=== PATIENT | female | born 1960 | race Caucasian/White ===

== ENCOUNTER 2018-05-26 19:05 | Emergency (ER) | payer OTHER ==
--- NOTE | 2018-05-26 20:20 | RAD ---
EXAM DESCRIPTION: Abdomen Series CLINICAL HISTORY: 57 years Female, luq acute pain, vomiting hx hiatal hernia Comparison: None FINDINGS: One AP view of the chest, one upright and one supine view of the abdomen. Cardiomediastinal silhouette is within normal limits. No focal lung consolidation. No pleural effusion. No pneumothorax. Nonobstructive bowel gas pattern. Moderate amount of stool in the region of the ascending colon. No free intraperitoneal air. No unexpected intra-abdominal radiopaque density. No acute osseous finding. IMPRESSION: No acute chest finding. Nonobstructive bowel gas pattern. Electronically signed by: Sue Trimble MD 05/26/2018 8:19 PM [employer]
[2018-05-26 20:24] VITALS: O2SAT 99
[2018-05-26] MEDS ORDERED: ALUM & MAG HYDROX-SIMETHICONE 30 ML UD ONE (20:26)
[2018-05-26] MEDS ORDERED: LIDOCAINE HCL 2% (MOUTH-THROAT) 15 ML UD ONE (20:26)
[2018-05-26] MEDS: ALUM & MAG HYDROX-SIMETHICONE 30 ML, LIDOCAINE VISCOUS 2% 15 ML PO ONE ×2 (20:27)
[2018-05-26] MEDS ORDERED: FAMOTIDINE 20 MG TAB ONE (21:08)
[2018-05-26] MEDS: SUCRALFATE 1 GM/10 ML 1 GM UD PO ONE (21:09)
[2018-05-26] MEDS: FAMOTIDINE 20 MG TAB PO ONE (21:13)
--- NOTE | 2018-05-26 21:54 | ED.PDOC ---
History of Present Illness - General Chief Complaint: Abdominal Pain Stated Complaint: Abdominal Pain Time Seen by Provider: 05/26/18 19:25 Source: patient Exam Limitations: no limitations - History of Present Illness Initial Comments: the patient is a 57-year-old female presenting to the emergency room secondary to epigastric and left upper quadrant discomfort present for the last 3 or 4 hours and worse with eating food. No fever. She did throw up once. She has had a history of a hiatal hernia. No fever. No diffuse abdominal pain. She does take Prilosec daily. Timing/Duration: 4-6 hours Severity: moderate Improving Factors: nothing Worsening Factors: eating Associated Symptoms: denies symptoms Allergies/Adverse Reactions: Allergies NO KNOWN ALLERGY Allergy (Verified 05/26/18 19:14) Home Medications: Ambulatory Orders Sucralfate Tab [Carafate Tab] 1 gm PO QID #120 tab 05/26/18 Review of Systems - Review of Systems Constitutional: States: no symptoms reported EENTM: States: no symptoms reported Respiratory: States: no symptoms reported Cardiology: States: no symptoms reported Gastrointestinal/Abdominal: States: see HPI Genitourinary: States: no symptoms reported Musculoskeletal: States: no symptoms reported Skin: States: no symptoms reported Neurological: States: no symptoms reported Endocrine: States: no symptoms reported All other Systems: No Change from Baseline Past Medical History (General) - Patient Medical History Hx Seizures: No Hx Stroke: No Hx Dementia: No Hx Asthma: No Hx of COPD: No Hx Cardiac Disorders: No Hx Congestive Heart Failure: No Hx Pacemaker: No Hx Hypertension: No Hx Thyroid Disease: No Hx Diabetes: No Hx Gastroesophageal Reflux: No Hx Renal Disease: No Hx Cancer: No Hx of HIV: No Hx Hepatitis C: No Hx MRSA: No Surgical History: other - Vaccination History Hx Tetanus, Diphtheria Vaccination: Yes Hx Influenza Vaccination: No Hx Pneumococcal Vaccination: No Immunizations Up to Date: No - Social History Hx Tobacco Use: No Hx Alcohol Use: Yes - Social drinker Hx Substance Use: No Hx Substance Use Treatment: No Hx Depression: No Feels Threatened In Home Enviroment: No Feels Threatened In a Relationship: No Hx Physical Abuse: No Hx Emotional Abuse: No Hx Suspected Abuse: No - Activities of Daily Living Hospice Agency (if applicable):: None - Female History Patient is a Female of Child Bearing Age (10 -59 yrs old): Yes Patient : No - Triage Comment ED Triage Comment: Pt states that she has upper abdominal pain with nausea that began about three hours ago and has gotten worse. Pt states that pain is worse with movement. Pt has not taken anything for pain. Family Medical History - Family History Mother Family History: Unknown Physical Exam - Physical Exam General Appearance: Alert, Comfortable, No apparent distress Eye Exam: bilateral normal Ears, Nose, Throat: hearing grossly normal, normal ENT inspection, normal pharynx Neck: non-tender, full range of motion, supple Respiratory: no respiratory distress, no accessory muscle use Cardiovascular/Chest: normal peripheral pulses, no edema, other - regular rate Peripheral Pulses: radial,right: 2+, radial,left: 2+ Gastrointestinal/Abdominal: soft, other - epigastric and left upper quadrant discomfort palpation. No definite palpable mass. 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 The patient does appear to have significant gastritis and GI cocktail did help significantly. The patient is to continue her Prilosec but increase it to twice daily. 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 She is going to be written for Carafate 4 times daily for the next month. If the problem recurs then she may need to discuss getting tested for Helicobacter pylori with her primary care doctor. She does have some mild constipation so she should milk pickup driver some milk of magnesia and take a dose daily for 3 days only. Tonight she needs to milk pickup driver some Maalox or Mylanta to take in case her symptoms recur. No other significant pathology has been found. ER warnings were given. Keep routine follow-up with primary care doctor otherwise. - Results/Orders Results/Orders: Laboratory Results - last 24 hr 05/26/18 05/26/18 05/26/18 19:51 19:51 19:51 WBC RBC Hgb Hct MCV MCH MCHC RDW Plt Count MPV Absolute Neuts (auto) Absolute Lymphs (auto) Absolute Monos (auto) Absolute Eos (auto) Absolute Basos (auto) Neutrophils % Lymphocytes % Monocytes % Eosinophils % Basophils % D-Dimer, Quantitative 0.19 Sodium 140 Potassium 3.6 Chloride 104 Carbon Dioxide 27 Anion Gap 12.6 BUN 14 Creatinine 0.73 BUN/Creatinine Ratio 19.2 Random Glucose 112 H Serum Osmolality 280.6 Lactic Acid 1.5 Calcium 9.1 Total Bilirubin 0.4 AST 22 ALT 14 Alkaline Phosphatase 56 Creatine Kinase 81 CK-MB (CK-2) 1.2 CK-MB (CK-2) % Not Reportable Troponin I 0.00 L Serum Total Protein 6.9 Albumin 4.2 Globulin 2.7 Albumin/Globulin Ratio 1.6 Amylase 84 Lipase 34 Urine Color Urine Appearance Urine pH Ur Specific [place] Urine Protein Urine Glucose (UA) Urine Ketones Urine Blood Urine Nitrite Urine Bilirubin Urine Urobilinogen Ur Leukocyte Esterase Urine RBC Urine WBC Ur Epithelial Cells Urine Bacteria 05/26/18 05/26/18 19:51 20:33 WBC 5.8 RBC 4.09 L Hgb 12.4 Hct 37.5 MCV 91.8 MCH 30.3 MCHC 32.9 L RDW 14.1 Plt Count 222 MPV 7.6 Absolute Neuts (auto) 3.70 Absolute Lymphs (auto) 1.40 Absolute Monos (auto) 0.50 Absolute Eos (auto) 0.10 Absolute Basos (auto) 0.10 Neutrophils % 63.7 Lymphocytes % 24.6 Monocytes % 9.2 H Eosinophils % 1.1 Basophils % 1.4 D-Dimer, Quantitative Sodium Potassium Chloride Carbon Dioxide Anion Gap BUN Creatinine BUN/Creatinine Ratio Random Glucose Serum Osmolality Lactic Acid Calcium Total Bilirubin AST ALT Alkaline Phosphatase Creatine Kinase CK-MB (CK-2) CK-MB (CK-2) % Troponin I Serum Total Protein Albumin Globulin Albumin/Globulin Ratio Amylase Lipase Urine Color Yellow Urine Appearance Clear Urine pH 5.5 Ur Specific [place] 1.025 Urine Protein Negative Urine Glucose (UA) Negative Urine Ketones Negative Urine Blood Small H Urine Nitrite Negative Urine Bilirubin Negative Urine Urobilinogen 0.2 Ur Leukocyte Esterase Trace H Urine RBC 5-10 H Urine WBC 3-5 H Ur Epithelial Cells 5-10 Urine Bacteria 1+ acute abdominal series is benign. She does have some constipation. - EKG/XRAY/CT CT Ordered: No CT Interpretation Call Back: No Departure - Departure Clinical Impression: Gastritis Qualifiers: Gastritis type: unspecified gastritis Chronicity: acute Gastritis bleeding: without bleeding Qualified Code(s): K29.00 - Acute gastritis without bleeding Constipation Qualifiers: Constipation type: unspecified constipation type Qualified Code(s): K59.00 - Constipation, unspecified Disposition: Discharge to Home or Self Care Condition: Fair Departure Forms: ED Discharge - Pt. Copy, Patient Portal Self Enrollment Diet: bland diet Activity: increase activity as tolerated Prescriptions: Sucralfate Tab [Carafate Tab] 1 gm PO QID #120 tab Home Medications: Ambulatory Orders Sucralfate Tab [Carafate Tab] 1 gm PO QID #120 tab 05/26/18 Additional Instructions: the patient is a 57-year-old female presenting to the emergency room with epigastric and left upper quadrant pain that started today. The patient does appear to have significant gastritis and GI cocktail did help significantly. The patient is to continue her Prilosec but increase it to twice daily. 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 She is going to be written for Carafate 4 times daily for the next month. If the problem recurs then she may need to discuss getting tested for Helicobacter pylori with her primary care doctor. She does have some mild constipation so she should milk pickup driver some milk of magnesia and take a dose daily for 3 days only. Tonight she needs to milk pickup driver some Maalox or Mylanta to take in case her symptoms recur. No other significant pathology has been found. ER warnings were given. Keep routine follow-up with primary care doctor otherwise.
[2018-05-26 22:11] VITALS: BP 114/74; TEMP 97.9
[2018-05-27] MEDS ORDERED: FAMOTIDINE 20 MG TAB PO ONE (21:05)
== END 2018-05-26 22:05 | disposition home or self-care (01) ==
LOC: ER 19:05
DX: K29.00 Acute gastritis without bleeding (principal); K59.00 Constipation, unspecified

== ENCOUNTER → 2018-06-16 | Outpatient (CLI) | payer BC, OTHER ==
--- NOTE | 2018-06-16 11:47 | CT ---
EXAM DESCRIPTION: CT ABDOMEN AND PELVIS WITH CONTRAST CLINICAL HISTORY: LUQ PAIN COMPARISON: None Available. TECHNIQUE: CT of the abdomen and pelvis are performed during IV bolus administration of routine adult dose of nonionic iodinated contrast. No oral contrast. FINDINGS: In the lower chest, the lung bases are clear. Heart size is normal. CT abdomen Tiny cyst at the lower pole the left kidney. 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 Otherwise the liver, spleen, pancreas, gallbladder, adrenal glands, stomach and kidneys are unremarkable in appearance. No inflammation around the pancreas. No renal stones or hydronephrosis. No bowel dilatation to suggest obstruction. No free air or free fluid. CT pelvis Tubular structure in the right false pelvis is thought to be small appendix. No surrounding inflammation. Pelvic vessels are prominent. No inflammation around the cecum or terminal ileum or sigmoid colon. Bladder and distal ureters are negative for stones. Normal enhancement of pelvic vessels. No inguinal or lower pelvic adenopathy. Small uterus is anteroflexed. No ovarian enlargement. Bone window images are negative for fracture or lytic lesion. Delayed images show normal contrast accumulation within the kidneys. Early contrast accumulation in the bladder base. Coronal and sagittal reformatted images confirm the findings. IMPRESSION: No acute upper abdominal process. No acute process in the pelvis. This exam was performed according to our departmental dose-optimization program, which includes automated exposure control, adjustment of the mA and/or kV according to patient size and/or use of iterative reconstruction technique. Total DLP equals 1014.31 mGycm. Electronically signed by: Ciaran Medina MD 06/16/2018 11:46 AM S[facility]
== END ==
LOC: CT 08:46
PROVIDERS: ATTEND Internal Medicine Gastroenterology
DX: R10.12 Left upper quadrant pain (principal)

== ENCOUNTER 2020-08-12 13:12 | Emergency (ER) | payer BC ==
[2020-08-12] MEDS ORDERED: FLUORESCEIN SODIUM OPHTH STRIP ONE (13:20)
[2020-08-12] MEDS ORDERED: TETRACAINE HCL 0.5% OPHTH SOL 1 DROP ONE (13:52)
[2020-08-12] MEDS ORDERED: ERYTHROMYCIN OPHTH OINT 1 APPLIC RIGHT_EYE ONE (13:58)
--- NOTE | 2020-08-12 14:01 | ED.PDOC ---
History of Present Illness - General Chief Complaint: Eye Problems Stated Complaint: eye irritation Time Seen by Provider: 08/12/20 13:58 Source: patient Exam Limitations: no limitations - History of Present Illness Initial Comments: The patient is a 59-year-old female presented emergency room secondary to pain to the right lower thigh for the last couple of days. It started when she felt like she got something in her eye 2 days ago. She rubs but said that it worse. Very mild blurry vision. Visual orosco are intact. Extraocular movements are intact. There is a very mild conjunctival reaction at approximately 8:00. Fluorescein exam, after risk benefits were explained indicates a very small corneal abrasion at approximately 8:00 on the cornea edge. Timing/Duration: other - 2 days Severity: mild Improving Factors: nothing Worsening Factors: nothing Associated Symptoms: denies symptoms Allergies/Adverse Reactions: Allergies NO KNOWN ALLERGY Allergy (Verified 08/12/20 13:25) Home Medications: Ambulatory Orders Erythromycin Ophth Oint 0.5 inch RIGHT_EYE Q6H 7 Days tube 08/12/20 Review of Systems - Review of Systems Constitutional: States: no symptoms reported EENTM: States: see HPI Respiratory: States: no symptoms reported Cardiology: States: no symptoms reported Gastrointestinal/Abdominal: States: no symptoms reported Genitourinary: States: no symptoms reported Musculoskeletal: States: no symptoms reported Skin: States: no symptoms reported Neurological: States: no symptoms reported Endocrine: States: no symptoms reported All other Systems: No Change from Baseline Past Medical History (General) - Patient Medical History Hx Seizures: No Hx Stroke: No Hx Dementia: No Hx Asthma: No Hx of COPD: No Hx Cardiac Disorders: No Hx Congestive Heart Failure: No Hx Pacemaker: No Hx Hypertension: No Hx Thyroid Disease: No Hx Diabetes: No Hx Gastroesophageal Reflux: No Hx Renal Disease: No Hx Cancer: No Hx of HIV: No Hx Hepatitis C: No Hx MRSA: No - Vaccination History Hx Tetanus, Diphtheria Vaccination: No Hx Influenza Vaccination: No Hx Pneumococcal Vaccination: No Immunizations Up to Date: No - Social History Hx Tobacco Use: No Hx Alcohol Use: Yes - Social drinker Hx Substance Use: No Hx Substance Use Treatment: No Hx Depression: No Hx Physical Abuse: No Hx Emotional Abuse: No Hx Suspected Abuse: No - Female History Patient is a Female of Child Bearing Age (10 -59 yrs old): No Patient : No Family Medical History - Family History Mother Family History: Unknown Physical Exam - Physical Exam General Appearance: Alert, Anxious, No apparent distress Eye Exam: right other - See history of present illness, left normal Ears, Nose, Throat: normal pharynx Neck: full range of motion Respiratory: no respiratory distress, no accessory muscle use Cardiovascular/Chest: normal peripheral pulses Peripheral Pulses: radial,right: 2+ Rectal Exam: deferred Extremity: normal range of motion, normal capillary refill 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 The patiently placed on erythromycin ointment every 6 hours for the next week. She needs to avoid drying of the eye with wind from a ceiling fan or direct vent. [id number]-jjg-[id number] anti-inflammatory such as Motrin or Aleve may also prove beneficial. Compresses may also help. ER warnings are given. [email or web address] [id number] Departure - Departure Clinical Impression: Corneal abrasion, right Qualifiers: Encounter type: initial encounter Qualified Code(s): S05.01XA - Injury of conjunctiva and corneal abrasion without foreign body, right eye, initial encounter Disposition: Discharge to Home or Self Care Condition: Fair Departure Forms: ED Discharge - Pt. Copy, Patient Portal Self Enrollment Instructions: DI for Eye Pain, Corneal Abrasion ED Diet: regular diet Activity: increase activity as tolerated Referrals: Andrea Childs MD [Primary Care Provider] - 1-2 Weeks Prescriptions: Erythromycin Ophth Oint 0.5 inch RIGHT_EYE Q6H 7 Days tube Home Medications: Ambulatory Orders Erythromycin Ophth Oint 0.5 inch RIGHT_EYE Q6H 7 Days tube 08/12/20 Additional Instructions: The patient is a 59-year-old female presented emergency room with what appears to be a small corneal abrasion to the right eye. The patiently placed on erythromycin ointment every 6 hours for the next week. She needs to avoid drying of the eye with wind from a ceiling fan or direct vent. Vfrg-dfb-wcrztmd anti-inflammatory such as Motrin or Aleve may also prove beneficial. Compresses may also help. ER warnings are given.
[2020-08-12 14:16] VITALS: BP 121/77; TEMP 97.1; O2SAT 99
== END 2020-08-12 14:15 | disposition home or self-care (01) ==
LOC: ER 13:12
DX: S05.01XA Injury of conjunctiva and corneal abrasion without foreign body, right eye, initial encounter (principal); X58.XXXA Exposure to other specified factors, initial encounter; Y92.9 Unspecified place or not applicable